=== PATIENT | female | born 1975 | race Caucasian/White ===

== ENCOUNTER 2021-10-13 11:27 | Outpatient (CLI) | payer OTHER | END 2021-10-13 11:28 | disposition home or self-care (01) | LOC: CSHRAD 11:27 | PROVIDERS: ATTEND Family Medicine | DX: S19.9XXA Unspecified injury of neck, initial encounter (principal); V89.2XXA Person injured in unspecified motor-vehicle accident, traffic, initial encounter | CPT/HCPCS: 72050 ==